=== PATIENT | female | born 1975 | race African-American/Black ===

== ENCOUNTER 2016-10-30 21:06 | Inpatient (IN) | payer OTHER ==
[~2016-10-30] VITALS: Ht 160 cm; Wt 70.4 kg
--- NOTE | ~2016-10-30 | 2DMMODE ---
[facility] [place] [address] 2 D/M-MODE ECHOCARDIOGRAM Name: SHELLEY BRADLEYHA Room #: 456-P ADM IN M.R.#: [id number] Admission: 10/30/16 Attend Phys: Germain Herndon, Discharge: Date of : 71 Date of Service: 10/31/16 1226 Report #: [id number] THIS REPORT FOR: //name// APPROVED REPORT EXAM: Comprehensive 2D, Doppler, and color-flow Echocardiogram Patient Location: Bedside/Room 456/ HEAD OF ICT Blood Pressure: 173/105 mmHg HR: 74 bpm Other Information Study Quality: Good Indications CHF exacerbation, short of air. Hx: CHF, HTN, Tobacco 2D Dimensions RVDd: 41.65 mm LVEF(%): 34.40 (>50%) IVSd: 14.77 (7-11mm) LVOT Diam: 21.29 (18-24mm) LVDd: 48.53 mm PWd: 14.75 (7-11mm) Ascending Aorta: 33.59 mm LVDs: 40.57 (25-40mm) Aortic Root: 33.00 mm Connor's LVEF: 34.40 % Volumes Left Atrial Volume (Systole) Single Plane 4CH: 124.08 mL Single Plane 2CH: 108.69 mL LA ESV Index: 74.00 mL/m2 Aortic Valve AoV Peak Aidan.: 1.10 m/s AO Peak Gr.: 4.82 mmHg LV Max P.26 mmHg LV Max: 0.56 m/s Mitral Valve MV PHT: 41.33 ms MV E Max Aidan.: 0.61 m/s E/A Ratio: 1.4 MV A Aidan.: 0.43 m/s MV Decel. Time: 142.51 ms Pulmonary Valve PV Peak Aidan.: 0.56 m/s PV Peak Gr.: 1.27 mmHg [facility] [place] [address] 2 D/M-MODE ECHOCARDIOGRAM Name: [facility] Room #: 456-P ADM IN .R.#: [id number] Admission: 10/30/16 Attend Phys: Germain Herndon, Discharge: Date of : 71 Date of Service: 10/31/16 1226 Report #: [id number] Tricuspid Valve TR Peak Aidan.: 3.72 m/s RAP Estimate: 10.00 mmHg TR Peak Gr.: 55.44 mmHg RVSP: 65.00 mmHg Left Ventricle The left ventricle is normal size. Regional wall motion abnormalities are noted. There is moderate hypokinesis in the inferior wall. Moderate concentric left ventricular hypertrophy. Left ventricular systolic function is moderately decreased. LVEF is 35-40%. Right Ventricle Right ventricle is mildly dilated. The right ventricular systolic function is normal. Atria Left atrium is severely dilated. Right atrium is moderate to severely dilated. Aortic Valve The aortic valve is normal in structure. Mild to moderate aortic regurgitation. There is no aortic valvular stenosis. Mitral Valve Mitral valve leaflets are mildly thickened. Mild mitral annular calcification. Mild to moderate mitral regurgitation. Tricuspid Valve The tricuspid valve is normal in structure. There is moderate to severe tricuspid regurgitation. The right atrial pressure is estimated at 10 mmHg. There is moderate pulmonary hypertension with an estimated PAP of -45-50mmHg. Pulmonic Valve The pulmonary valve is normal in structure. Moderate pulmonic regurgitation. Great Vessels The aortic root is normal in size. The ascending aorta is normal in size. IVC is normal in size and collapses <50% with inspiration. Pericardium Trivial pericardial effusion. <Conclusion> [address] [address] 2 D/M-MODE ECHOCARDIOGRAM Name: SHELLEY BRADLEYHA Room #: 456-P [facility] IN M.R.#: [id number] Admission: 10/30/16 Attend Phys: Germain Herndon, Discharge: Date of : 71 Date of Service: 10/31/16 1226 Report #: [id number] The left ventricle is normal size. Moderate concentric left ventricular hypertrophy. Left ventricular systolic function is moderately decreased. Regional wall motion abnormalities are noted. There is moderate hypokinesis in the inferior wall. Right ventricle is mildly dilated. Left atrium is severely dilated. Right atrium is moderate to severely dilated. Mild to moderate aortic regurgitation. Mild to moderate mitral regurgitation. There is moderate to severe tricuspid regurgitation. The right atrial pressure is estimated at 10 mmHg. There is moderate pulmonary hypertension with an estimated PAP of -45-50mmHg. <ELECTRONICALLY SIGNED> By: Parish Foreman MD 10/31/16 1226 1226 1226 Parish Foreman MD /INF
--- NOTE | ~2016-10-30 | HC ---
[facility] [place] [address] CONSULTATION Name: BLANCA BRADLEY Room #: [facility] MPayton#: [id number] Admission: 10/30/16 Attend Phys: Taylor Wilson Discharge: Date of : 71 Report #: [id number] THIS REPORT FOR: //name// CC: ONDINA physician/PCP Germain Herndon DATE OF SERVICE: 11/01/2016 INDICATION: Dyspnea. HISTORY OF PRESENT ILLNESS: This is a 41-year-old female presenting with increasing shortness of breath. The patient was diagnosed with congestive heart failure and treated with several doses of IV Lasix. She is diuresed well with an improvement in her respiratory status. The patient was previously hospitalized 4 years ago with congestive heart failure. An echo revealed an EF of 40%. The etiology for cardiomyopathy was felt to be related to untreated hypertension. She has been on medications, but reports that she has been noncompliant, mainly attributed to financial reasons. She offers no complaints of angina, palpitations or congestion. An echo on this admission reveals segmental wall motion abnormalities. PAST MEDICAL HISTORY: Hypertension, history of noncompliance, cardiomyopathy, felt to be related to hypertensive disease. Moderate pulmonary hypertension. ALLERGIES: None. MEDICATIONS AT HOME: Apparently are metoprolol 100 mg daily, verapamil 80 mg 3 times a day, and hydrochlorothiazide. SOCIAL HISTORY: Positive for half a pack of cigarettes per day. FAMILY HISTORY: Negative for premature CAD. REVIEW OF SYSTEMS: A full 10-point review of systems performed. Only the pertinent positives and negatives are described in the HPI. PHYSICAL EXAMINATION: VITAL SIGNS: Blood pressure is 140/80, heart rate is 85 beats per minute. GENERAL APPEARANCE: A well-developed, well-nourished female in no acute respiratory distress. HEAD AND EYES: Normocephalic. Sclerae are anicteric. ENT: Oral mucosa moist. NECK: Supple. LUNGS: Clear to auscultation. CARDIAC: Regular rate and rhythm. 2/6 systolic murmur. ABDOMEN: Soft, nontender. Bowel sounds positive. [facility] [address] [place] [address] [facility] Room #: 456-P [facility] M.R.#: [id number] Admission: 10/30/16 Attend Phys: Taylor Wilson Discharge: Date of : 71 Report #: [id number] EXTREMITIES: No major joint deformities. No edema. ECG reveals sinus rhythm, T-wave in V2, nonspecific T-wave abnormalities. LABORATORY VALUES: White count is 6.6, hemoglobin is 8.8. Sodium is 137, creatinine is 1.5, troponin is negative. ASSESSMENT: 1. Congestive heart failure, acute on chronic mixed type. Her symptoms have stabilized with several doses of IV Lasix. She is currently on hydrochlorothiazide. 2. Cardiomyopathy, may be related to untreated hypertension. However, the echo reveals segmental wall motion abnormalities. She will be scheduled for a nuclear stress test to rule out ischemic heart disease. 3. Hypertension, improved at this time. We will make changes to her medical regimen in view of her underlying cardiomyopathy. Mainly change in the beta melva to carvedilol. I would also like to discontinue verapamil, as it is a negative inotrope. 4. Noncompliance, spoke to the patient of the importance of taking her medications. 5. Tobacco use, complete smoking cessation is recommended. 6. Anemia. Thank you for allowing me to participate in the care of your patient. <ELECTRONICALLY SIGNED> By: Parish Foreman MD 11/02/16 0831 1112 2358 Parish Foreman MD /nt
--- NOTE | ~2016-10-30 | H ---
[facility] [place] [address] HISTORY AND PHYSICAL Name: BLANCA BRADLEY Room #: 456-P [facility] IN M.R.#: [id number] Admission: 11/02/16 Attend Phys: Taylor Wilson Discharge: 11/02/16 Date of : 71 Report #: [id number] THIS REPORT FOR: //name// CC: ONDINA physician/PCP Germain Herndon DATE OF SERVICE: 10/30/2016 ATTENDING PHYSICIAN: Dr. Germain Herndon. PRIMARY CARE PHYSICIAN: None. CHIEF COMPLAINT: Shortness of air. HISTORY OF PRESENT ILLNESS: The patient is a 41-year-old female who has a history of uncontrolled hypertension and congestive heart failure. She previously had known noncompliance with her medication regimen and has had a prior admission due to hypertensive urgency, this was back in 2012. At that time, she had an echo, which showed an EF of 40% and grade 1 diastolic dysfunction with moderate pulmonary hypertension. She said for a while she was taking her medications for her blood pressure, but then she ran out and started just taking her meds on and off or every other day, trying to make her medications last longer. She just went to the ER at [facility] last week for a sinus infection and got another refill on all her blood pressure medications and says she has been compliant with her blood pressure regimen for the last week since she has had her refills. She has noticed increasing shortness of breath initially on and off over the last week, but they got worse. Today, she has had some mild cough which has been nonproductive. She denies any chest pain. She said last weekend, she had an episode in which she had some lower extremity edema mostly noticed in her feet. She does not normally check her weight. She tried the SUSHIL hose that she had previously been recommended and after a day or so, her edema got better. She denies any further swelling. She denies any history of DVT. She has never been on any Lasix at home, but has been taking hydrochlorothiazide. She does not necessarily watch her sodium or water intake. She has not been seeing any doctors regularly and mostly getting medication refills from the ER visits. She does not think she has had an echocardiogram since she left here in 2012. She also complains of back pain. She says her back has been causing her problems from many years and she says it is all throughout her spine, but there is some muscle soreness all throughout her right side. She does not really take anything for pain at home. She is denying any headache, chest pain, or blurry vision. PAST MEDICAL HISTORY: Hypertension, systolic heart failure with last known EF of 40%, grade 1 diastolic dysfunction, moderate pulmonary hypertension, anxiety, not on any current medications. [facility] [address] [place] [address] HISTORY AND PHYSICAL Name: BLANCA BRADLEY Room #: 456-P DIS IN M.R.#: [id number] Admission: 11/02/16 Attend Phys: Taylor Wilson Discharge: 11/02/16 Date of : 71 Report #: [id number] PAST SURGICAL HISTORY: She had a cyst removed off her small bowel area. ALLERGIES: None. HOME MEDICATIONS: Metoprolol 100 mg daily, verapamil 80 mg t.i.d. and hydrochlorothiazide 25 mg daily. SOCIAL HISTORY: The patient smokes half a pack of cigarettes per day. She has been smoking for at least 18 years. She lives with her son. She smokes alcohol occasionally, mostly about every other weekend. Denies any drug use. FAMILY HISTORY: Her mother is alive with COPD. Her father is alive and healthy. Her grandmother was a diabetic and also had some blood pressure problems. REVIEW OF SYSTEMS: Twelve point review of systems was reviewed with the patient, otherwise negative unless stated in the HPI. PHYSICAL EXAMINATION: GENERAL: The patient is an alert female in no acute distress. VITAL SIGNS: Temperature is 36.5, heart rate 60, respirations 20, blood pressure is 142/92, oxygen 95% on room air. HEENT: PERRLA. Sclerae is nonicteric. Oral mucosa is pink and moist. NECK: Supple, no JVD noted. CARDIOVASCULAR: Normal S1, S2. No murmurs, rubs or gallops. RESPIRATORY: Breath sounds are clear in bilateral upper lobes. She is diminished in the right lower lobe, but there are no crackles. ABDOMEN: Soft, nontender, nondistended with positive bowel sounds. VASCULAR: She does not have any edema. Her pedal pulses are 2+. MUSCULOSKELETAL: She does have some tenderness to point palpation of her lumbar spine area and there is tenderness throughout musculature on her right side of her back. There is not necessarily any right CVA tenderness. NEUROLOGIC: The patient is alert and oriented x 3. Speech is clear. She is moving all extremities equally. No focal neuro deficits noted. LABORATORY AND DIAGNOSTICS: WBC is 9.1, hemoglobin 9.5, platelets 264. Sodium 133, potassium 3.8, BUN 17, creatinine 1.1, glucose 101. Troponins 0.07. BNP 7185. EKG showing sinus rhythm. Chest x-ray showed infiltrate versus atelectasis in the right lung base and there is scarring seen in the left base unchanged. ASSESSMENT AND PLAN: 1. Acute on chronic systolic and diastolic heart failure. Her BNP is elevated and likely causing her dyspnea. We will further evaluate her current EF with an echocardiogram. She was given a dose of IV Lasix in the ER and has been diuresing well. We will continue with IV Lasix for a few more doses today and [facility] [address] [place] [address] HISTORY AND PHYSICAL Name: BLANCA BRADLEY Room #: 456-P [facility] IN M.R.#: [id number] Admission: 11/02/16 Attend Phys: Taylor Wilson Discharge: 11/02/16 Date of : 71 Report #: [id number] continue beta melva and PRAFUL inhibitor. 2. Hypertension. She has had some problems with medication compliance due to financial issues and insurance issues. She says she now has her medications, which she will continue as previously prescribed. 3. Chronic back pain. The patient says this is getting worse and she really has not been on any pain medications or had any imaging done. We will go ahead and check a thoracic and lumbar spine x-ray today and start her on Flexeril p.r.n. and ibuprofen. 4. Tobacco abuse. The patient has been advised to quit. 5. Medication noncompliance. The patient was trying to get her Medicaid reinstated, but that has been unsuccessful. She will likely need case management for assistance in getting any new medications that may be prescribed. 5. Deep venous thrombosis prophylaxis, place sequential compression devices. We will continue to follow the patient closely throughout the hospitalization and make changes based on clinical status. <ELECTRONICALLY SIGNED> By: LA Obando 11/03/16 0658 0645 0717 LA Obando /nt
--- NOTE | ~2016-10-30 | EKG ---
[address] [employer] [address] [place] [address] ELECTROCARDIOGRAM REPORT Name: BLANCA BRADLEY Room #: 456-P [facility] M.R.#: [id number] Admission: 10/30/16 Attend Phys: Germain Herndon MD Discharge: Date of : 71 Report #: [id number] THIS REPORT FOR: //name// [facility] ED Test Date: 2016-10-30 Test Time: 21:24:41 Pat Name: BLANCA BRADLEY Department: Room: [facility] Gender: F Field Technician: ANTHONY : 1975 Requested By: Uriah Alvarado Order Number: [id number] MD: Parish Foreman Measurements Intervals [place] Rate: 58 P: 12 MN: 242 QRS: 93 QRSD: 107 T: 125 QT: 490 QTc: 482 Interpretive Statements Sinus rhythm Ventricular premature complex Prolonged [place] interval Probable left atrial enlargement Probable lateral infarct, age indeterminate Poor R wave progression No previous ECG available for comparison Electronically Signed On 10-31-2016 12:35:02 CDT by Parish Foreman [email or web address] <ELECTRONICALLY SIGNED> By: Parish Foreman MD 10/31/16 1235 23 23 Parish Foreman MD /SENG
[~2016-10-30 21:06] MED LIST: ACETAMINOPHEN325 M1 PO; ANTACID500 MG PO; IBUPROFEN 200200 M1 PO; LASIX 20 MG TAB20 MG PO; LISINOPRIL-HCT1 EAC1 PO; METOPROLOL SUCC25 M1; NICODERM CQ1 EAC1 TRANSDERM; POTASSIUM20 PO; PRINIVIL20 MG PO; TRAMADOL 50 MG50 MG PO; ULTRAM 50MG TAB50 MG PO; WOMEN'S DAILY1 EAC2 PO; XANAX 0.25 MG0.25 MG PO
[2016-10-30 21:12] VITALS: BP 136/101
[2016-10-30] MEDS ORDERED: VERAPAMIL HCL 880 M1 PO (21:49)
[2016-10-30] MEDS ORDERED: HYDROCHLOROTHIA25 M2 PO (21:50)
[2016-10-30 22:08] LABS: HEMOGLOBIN 9.5 gm/dL (12.0-15.0)
[2016-10-30 22:09] LABS: HEMATOCRIT 31.9 % (37.0-47.0); MCH 19.3 pg (26.0-34.0); MCHC 29.9 g/dL (28.0-37.0); MCV 64.5 fL (80.0-100.0); PLATELET COUNT 264 thou/uL (150-400); RBC 4.94 mil/uL (4.20-5.00); RDW 23.8 % (10.5-14.5); WBC 9.1 thou/uL (4.0-11.0)
[2016-10-30 22:10] LABS: CALCIUM 8.6 mg/dL (8.5-10.1); CREATININE 1.1 mg/dL (0.6-1.3); POTASSIUM 3.8 mmol/L (3.5-5.1)
[2016-10-30 22:11] LABS: MANUAL DIFF YES
[2016-10-30 22:22] LABS: TROPONIN-I 0.07 ng/mL (<0.04-0.07)
[2016-10-30 22:45] LABS: ABSOLUTE NEUTROPHILS 7.6 thou/uL (1.4-8.2); NUCLEATED RBCS 3 /100WBC; TOTAL CELL COUNT 100
[2016-10-30 22:46] LABS: ANISOCYTOSIS 2+; BURR CELLS 2+; POIKILOCYTOSIS 3+
[2016-10-30 22:47] LABS: OVALOCYTES 1+; POLYCHROMASIA 2+; TARGET CELLS 1+
[2016-10-30 23:37] VITALS: BP 145/98
[2016-10-31 00:25] VITALS: BP 155/120; BP 155/20
[2016-10-31 02:49] VITALS: BP 154/102
[2016-10-31 06:00] LABS: CHOLESTEROL 123 mg/dL (<200); HDL CHOLESTEROL 43 mg/dL (>40); LDL CHOLESTEROL 62 mg/dL (<100); TC:HDL 2.9 Ratio (Not establshd); TRIGLYCERIDE 94 mg/dL (<150); VLDL 19 mg/dL (<40)
[2016-10-31 07:24] VITALS: BP 173/105
[2016-10-31 12:24] VITALS: BP 167/109
[2016-10-31 16:00] VITALS: BP 172/126
[2016-10-31 19:35] VITALS: BP 103/66
[2016-11-01 03:33] VITALS: BP 137/102
[2016-11-01 04:51] LABS: HEMATOCRIT 28.4 % (37.0-47.0); HEMOGLOBIN 8.8 gm/dL (12.0-15.0); MCH 19.9 pg (26.0-34.0); MCHC 30.9 g/dL (28.0-37.0); MCV 64.2 fL (80.0-100.0); RBC 4.42 mil/uL (4.20-5.00); WBC 6.6 thou/uL (4.0-11.0)
[2016-11-01 05:08] LABS: CALCIUM 8.4 mg/dL (8.5-10.1); CREATININE 1.5 mg/dL (0.6-1.3); POTASSIUM 3.5 mmol/L (3.5-5.1)
[2016-11-01 08:00] VITALS: BP 139/92
[2016-11-01 12:00] VITALS: BP 139/94
[2016-11-01 16:00] VITALS: BP 130/95
[2016-11-01 21:02] VITALS: BP 146/90
[2016-11-01 23:35] VITALS: BP 131/91
[2016-11-02 06:29] LABS: HEMATOCRIT 28.5 % (37.0-47.0); HEMOGLOBIN 8.6 gm/dL (12.0-15.0); MCH 19.5 pg (26.0-34.0); MCHC 30.1 g/dL (28.0-37.0); MCV 64.7 fL (80.0-100.0); RBC 4.4 mil/uL (4.20-5.00); RDW 23.4 % (10.5-14.5); WBC 6.3 thou/uL (4.0-11.0)
[2016-11-02 06:45] LABS: CALCIUM 8.5 mg/dL (8.5-10.1); CREATININE 1.3 mg/dL (0.6-1.3); POTASSIUM 3.5 mmol/L (3.5-5.1)
[2016-11-02 07:25] VITALS: BP 115/90
[2016-11-02 09:50] LABS: % SATURATION 7 % (20-39); IRON 23 ug/dL (50-170); TIBC 344 ug/dL (250-450); UIBC 321 ug/dL
[2016-11-02 11:20] VITALS: BP 135/90
[2016-11-02] MEDS ORDERED: CYCLOBENZAPRINE10 MG PO (13:35)
[2016-11-02] MEDS ORDERED: CARDURA4 MG PO (13:35)
[2016-11-02] MEDS ORDERED: LISINOPRIL20 MG PO (13:35)
[2016-11-02] MEDS ORDERED: AUGMENTIN 875875 MG PO (13:35)
[2016-11-02] MEDS ORDERED: CARVEDILOL12.5 MG PO (13:35)
[2016-11-02] MEDS ORDERED: LASIX 40 MG TAB40 M2 PO (16:17)
[2016-11-02 16:18] VITALS: BP 135/90
== END 2016-11-02 17:32 | disposition home or self-care (01) | DRG 291 ==
LOC: ER 21:06 → 4W 22:58 → EROBS 22:58 → 4W 23:22
PROVIDERS: Emergency Medicine; Family Medicine; Nurse Practitioner Acute Care
DX: I13.0 Hypertensive heart and chronic kidney disease with heart failure and stage 1 through stage 4 chronic kidney disease, or unspecified chronic kidney disease (principal); I50.43 Acute on chronic combined systolic (congestive) and diastolic (congestive) heart failure; J18.9 Pneumonia, unspecified organism; N17.9 Acute kidney failure, unspecified; N18.3 Chronic kidney disease, stage 3 (moderate); G89.29 Other chronic pain; F17.210 Nicotine dependence, cigarettes, uncomplicated; I27.2 Other secondary pulmonary hypertension; M54.9 Dorsalgia, unspecified; F41.9 Anxiety disorder, unspecified; I42.9 Cardiomyopathy, unspecified; D64.9 Anemia, unspecified; I16.0 Hypertensive urgency; Z82.49 Family history of ischemic heart disease and other diseases of the circulatory system; Z83.3 Family history of diabetes mellitus; Z83.6 Family history of other diseases of the respiratory system; Z71.6 Tobacco abuse counseling; Z91.14 Patient's other noncompliance with medication regimen; Z79.899 Other long term (current) drug therapy
CPT/HCPCS: 10045

== ENCOUNTER 2016-12-16 20:41 | Inpatient (IN) | payer OTHER ==
[~2016-12-16] VITALS: Ht 160 cm; Wt 72.3 kg
--- NOTE | ~2016-12-16 | EKG ---
[address] [address] ELECTROCARDIOGRAM REPORT Name: BLANCA BRADLEY Room #: 212-P [facility] IN M.R.#: [id number] Admission: 12/17/16 Attend Phys: Jovanni Jones MD Discharge: 12/19/16 Date of : 71 Report #: [id number] THIS REPORT FOR: //name// [facility] ED Test Date: 2016-12-16 Test Time: 21:12:33 Pat Name: BLANCA BRADLEY Department: Room: [facility] Gender: F Form Raiser: MORIS : 1975 Requested By: Nicole Redding Order Number: [id number] MD: Reginald Castro Measurements Intervals [place] Rate: 64 P: 30 CA: 235 QRS: 73 QRSD: 147 T: 145 QT: 545 QTc: 563 Interpretive Statements Sinus rhythm Prolonged [place] interval Probable left atrial enlargement Left ventricular hypertrophy Probable lateral infarct, age indeterminate Anterior infarct, old Prolonged QT interval Electronically Signed On 12-21-2016 8:09:30 CDT by Reginald Castro [email or web address] <ELECTRONICALLY SIGNED> By: Reginald Castro MD 12/21/1609 11 11 Reginald Castro MD /SENG
--- NOTE | ~2016-12-16 | HC ---
[facility] [place] [address] CONSULTATION Name: BLANCA BRADLEY Room #: 212-P ADM IN M.R.#: [id number] Admission: 12/17/16 Attend Phys: Jovanni Jones MD Discharge: Date of : 71 Report #: [id number] THIS REPORT FOR: //name// CC: ONDINA physician/PCP Darío Sharif DATE OF SERVICE: 12/17/2016 INDICATION: Dyspnea. HISTORY OF PRESENT ILLNESS: This is a 41-year-old female presenting with lightheadedness, diaphoresis, and dyspnea. The patient has a history of nonischemic cardiomyopathy diagnosed in 2012. She was last admitted to [facility] about a month ago for heart failure, attributed to noncompliance. During that admission, her medications were changed from metoprolol and verapamil to Coreg and lisinopril. It seems that the patient ran out on the new medications and she resumed her previous medications. Several days ago, she had an episode of chest pain, relieved with aspirin. She reports having some dyspnea with exertion, but denies any history of PND or orthopnea. PAST MEDICAL HISTORY: Nonischemic cardiomyopathy diagnosed in 2012. Nuclear stress test from October 2016, reveals no evidence for ischemia, moderate LV dysfunction. Echo reveals moderate LV dysfunction with [id number] aortic insufficiency and [id number] mitral regurgitation. History of noncompliance. Chronic renal insufficiency, hypertension, and tobacco use. ALLERGIES: None. CURRENT MEDICATIONS: Include metoprolol 100 mg daily, verapamil, and hydrochlorothiazide. SOCIAL HISTORY: Positive tobacco use, at least half a pack of cigarettes per day. FAMILY HISTORY: Negative for premature CAD. REVIEW OF SYSTEMS: A full 10-point review of systems performed. Only the pertinent positives and negatives are described in the HPI. PHYSICAL EXAMINATION: VITAL SIGNS: Blood pressure 136/95, heart rate is 65 beats per minute. GENERAL APPEARANCE: This is a well-developed, well-nourished female, in no acute respiratory distress. HEAD AND EYES: Normocephalic. Sclerae are anicteric. ENT: Oral mucosa moist. NECK: Supple. [facility] [address] [place] [address] CONSULTATION Name: SHELLEY BRADLEYHA Room #: 212-P [facility] IN .R.#: [id number] Admission: 12/17/16 Attend Phys: Jovanni Jones MD Discharge: Date of : 71 Report #: [id number] LUNGS: Clear to auscultation. CARDIAC: Regular rate and rhythm, S1, S2 positive, 1/6 systolic murmur. ABDOMEN: Soft, nontender. Bowel sounds positive. EXTREMITIES: No major joint deformities. Trace to 1+ bilateral lower extremity edema. LABORATORY VALUES: Peak troponin is 0.09. BNP is elevated. Creatinine is 1.5, at baseline sodium is low at 129. ECG reveals sinus rhythm, first degree AV block, Q-waves in the anteroseptal leads, nonspecific T-wave abnormalities. ASSESSMENT AND PLAN: 1. Congestive heart failure, acute on chronic mixed type. No evidence for ischemia on her most recent nuclear stress test. We would resume her previous meds including carvedilol and lisinopril. Follow the creatinine at this time. 2. Troponin of 0.09, in the indeterminate range. More likely related to her heart failure. 3. Hypertension, continue with medications. 4. Tobacco use, complete smoking cessation was discussed. 5. Chronic renal insufficiency, follow the creatinine. Thank you for allowing me to participate in the care of your patient. <ELECTRONICALLY SIGNED> By: Parish Foreman MD 12/18/16 0808 0918 1009 Parish Foreman MD /nt
[~2016-12-16 20:41] MED LIST changes: +AUGMENTIN 875875 MG PO; +CARDURA4 MG PO; +CARVEDILOL12.5 MG PO; +CYCLOBENZAPRINE10 MG PO; +HYDROCHLOROTHIA25 M2 PO; +LASIX 40 MG TAB40 M2 PO; +LISINOPRIL20 MG PO; +VERAPAMIL HCL 880 M1 PO
[2016-12-16 20:46] VITALS: BP 132/98
[2016-12-16 21:29] LABS: HEMOGLOBIN 9.6 gm/dL (12.0-15.0)
[2016-12-16 21:31] LABS: HEMATOCRIT 31.7 % (37.0-47.0); MCH 20.8 pg (26.0-34.0); MCHC 30.4 g/dL (28.0-37.0); MCV 68.4 fL (80.0-100.0); PLATELET COUNT 231 thou/uL (150-400); RBC 4.63 mil/uL (4.20-5.00); RDW 28.6 % (10.5-14.5)
[2016-12-16 21:32] LABS: MANUAL DIFF YES
[2016-12-16 21:34] LABS: CALCIUM 8.7 mg/dL (8.5-10.1); CREATININE 1.5 mg/dL (0.6-1.0); POTASSIUM 4.3 mmol/L (3.5-5.1)
[2016-12-16 21:37] LABS: APTT 27.1 Seconds (24.5-32.8); INR 1.6; PROTIME 16.3 Seconds (9.3-11.4)
[2016-12-16 21:41] LABS: ALBUMIN 3.1 g/dL (3.4-5.0); TOTAL PROTEIN 7.9 g/dL (6.4-8.2); TROPONIN-I 0.09 ng/mL (<0.04-0.07)
[2016-12-16 22:44] LABS: ABSOLUTE NEUTROPHILS 5.9 thou/uL (1.4-8.2); NUCLEATED RBCS 8 /100WBC; TOTAL CELL COUNT 100
[2016-12-16 22:54] LABS: ANISOCYTOSIS 3+; POLYCHROMASIA SLIGHT
[2016-12-16 22:55] LABS: HYPOCHROMASIA 1+; MICROCYTES 2+; POIKILOCYTOSIS SLIGHT
[2016-12-17] VITALS (7 sets, daily range): BP systolic 120–171; BP diastolic 92–115
[2016-12-18 00:01] LABS: AMP/METHAMP Negative (Negative); BARBITURATES Negative (Negative); BENZODIAZEPINES Negative (Negative); COCAINE Negative (Negative); METHADONE Negative (Negative); OPIATES POSITIVE (Negative); PCP Negative (Negative); THC Negative (Negative)
[2016-12-18 04:03] LABS: CALCIUM 7.9 mg/dL (8.5-10.1); CREATININE 1.8 mg/dL (0.6-1.0); HEMOGLOBIN 9.5 gm/dL (12.0-15.0); MCHC 31.3 g/dL (28.0-37.0); POTASSIUM 3.9 mmol/L (3.5-5.1)
[2016-12-18 04:08] LABS: HEMATOCRIT 30.4 % (37.0-47.0); MCH 21.2 pg (26.0-34.0); MCV 67.9 fL (80.0-100.0); RBC 4.47 mil/uL (4.20-5.00); RDW 27.9 % (10.5-14.5); WBC 7.2 thou/uL (4.0-11.0)
[2016-12-18 04:45] VITALS: BP 129/95
[2016-12-18 06:10] LABS: HEPATITIS C VIRUS AB 0.1 (0.0-0.9)
[2016-12-18 07:25] VITALS: BP 125/97
[2016-12-18 08:30] VITALS: BP 125/97
[2016-12-18 08:48] LABS: ALBUMIN 2.6 g/dL (3.4-5.0); DIRECT BILIRUBIN 0.7 mg/dL (<0.1-0.3); TOTAL BILIRUBIN 1.3 mg/dL (<0.1-1.0); TOTAL PROTEIN 6.9 g/dL (6.4-8.2)
[2016-12-18 12:00] VITALS: BP 134/102
[2016-12-18 16:15] VITALS: BP 136/96
[2016-12-18 19:55] VITALS: BP 133/95
[2016-12-19 04:05] VITALS: BP 153/106
[2016-12-19 05:42] LABS: ALBUMIN 2.6 g/dL (3.4-5.0); CALCIUM 7.7 mg/dL (8.5-10.1); CREATININE 1.5 mg/dL (0.6-1.0); POTASSIUM 4.2 mmol/L (3.5-5.1); TOTAL PROTEIN 6.7 g/dL (6.4-8.2)
[2016-12-19 08:20] VITALS: BP 177/131
[2016-12-19] MEDS ORDERED: LISINOPRIL20 MG PO (08:58)
[2016-12-19] MEDS ORDERED: LASIX 20 MG TAB20 MG PO (08:59)
[2016-12-19] MEDS ORDERED: AZITHROMYCIN 2250 MG PO (09:00)
[2016-12-19] MEDS ORDERED: CARVEDILOL12.5 MG PO (09:01)
[2016-12-19 10:36] VITALS: BP 177/131
[2016-12-19] MEDS ORDERED: NICOTINE TRANSD14 M1 TRANSDERM (11:30)
[2016-12-19 19:37] VITALS: BP 177/131
== END 2016-12-19 12:12 | disposition home or self-care (01) | DRG 291 ==
LOC: ER 20:41 → EROBS 12-17 00:37 → 2N 12-17 00:37
PROVIDERS: Emergency Medicine; Hospitalist; Internal Medicine Cardiovascular Disease
DX: I13.0 Hypertensive heart and chronic kidney disease with heart failure and stage 1 through stage 4 chronic kidney disease, or unspecified chronic kidney disease (principal); I50.43 Acute on chronic combined systolic (congestive) and diastolic (congestive) heart failure; E87.1 Hypo-osmolality and hyponatremia; N17.9 Acute kidney failure, unspecified; I42.9 Cardiomyopathy, unspecified; N18.9 Chronic kidney disease, unspecified; F17.210 Nicotine dependence, cigarettes, uncomplicated; Z71.6 Tobacco abuse counseling; Z79.899 Other long term (current) drug therapy; Z91.14 Patient's other noncompliance with medication regimen
CPT/HCPCS: 10081